=== PATIENT | female | born 1935 | race Caucasian/White ===

== ENCOUNTER → 2017-02-11 | Outpatient (CLI) | payer MEDICARE, BC ==
[2012-12-10 10:30] VITALS: BP 113/62
[~2017-02-11] MED LIST: CALCIUM + D 5001 TAB PO; CARDI-OMEGA1000 MG PO; CENTRUM SILVER1 TA1 PO; DOS PO; ESCITALOPRAM10 MG; FERROUS SULFATE65 MG PO; GOOD SENSE ASPI81 M1 PO; LOVASTATIN40 MG PO; MIRALAX17 GM/DOSE PO; VITAMIN C500 MG PO; ZOLPIDEM10 M1 PO; [UNRECOGNIZED DRUG - OTHER] PO
== END ==
LOC: LAB 10:07
DX: D64.9 Anemia, unspecified (principal); E78.2 Mixed hyperlipidemia; M81.0 Age-related osteoporosis without current pathological fracture; K63.5 Polyp of colon; E53.8 Deficiency of other specified B group vitamins

== ENCOUNTER 2017-11-23 14:10 | Emergency (ER) | payer MEDICARE, BC ==
[~2017-11-23] VITALS: Wt 59.8 kg
[2017-11-23 14:58] LABS: EOS # 0.1 (0.04-0.40); EOS % 0.8 % (1.0-5.0); HEMATOCRIT 38.4 % (37.0-47.0); HEMOGLOBIN 12.8 g/dL (12.5-16.0); LYMPH# 2.6 (1.50-4.00); MEAN CELL VOLUME 93 fl (78-100); MEAN CORPUSCULAR HEMOGLOBIN 31 pg (27-31); MEAN CORPUSCULAR HGB CONC 33 g/dL (33-37); MEAN PLATELET VOLUME 10.9 fl (7.4-10.4); MONO # 0.8 (0.20-0.80); NEU # 5.4 (1.40-6.50); PLATELET COUNT 263 K/mm3 (130-400); RED BLOOD COUNT 4.15 M/mm3 (4.10-5.30); RED CELL DISTRIBUTION WIDTH 13.2 % (11.5-14.5)
[2017-11-23 15:11] LABS: ALBUMIN 3.6 g/dL (3.5-5.0); BUN/CREATININE RATIO 22.2 (6.0-26.0); CALCIUM 8.9 mg/dL (8.4-10.2); POTASSIUM 3.6 mmol/L (3.6-5.0); TOTAL BILIRUBIN 0.6 mg/dL (0.2-1.3); TOTAL PROTEIN 6.6 g/dL (6.3-8.2); URINE APPEARANCE CLEAR; URINE BILIRUBIN NEGATIVE (NEGATIVE); URINE BLOOD NEGATIVE (NEGATIVE); URINE COLOR YELLOW; URINE GLUCOSE NEGATIVE (NEGATIVE); URINE KETONE NEGATIVE (NEGATIVE); URINE LEUKOCYTE ESTERASE NEGATIVE (NEGATIVE); URINE NITRATE NEGATIVE (NEGATIVE); URINE PROTEIN(semi-quant) NEGATIVE (NEGATIVE); URINE UROBILINOGEN NORMAL (NORMAL); URINE WBC 0-1 /hpf (0-3)
[2017-11-23 17:55] VITALS: BP 130/70
== END 2017-11-23 17:50 | disposition home or self-care (01) ==
LOC: ED 14:10
PROVIDERS: Family Medicine
DX: E86.9 Volume depletion, unspecified (principal); I95.1 Orthostatic hypotension; F03.90 Unspecified dementia, unspecified severity, without behavioral disturbance, psychotic disturbance, mood disturbance, and anxiety; Z79.899 Other long term (current) drug therapy
CPT/HCPCS: J7030

== ENCOUNTER → 2017-12-01 | Outpatient (CLI) | payer MEDICARE, BC ==
[2017-11-23 17:55] VITALS: BP 130/70
[2017-12-01 13:04] LABS: ALBUMIN 4.2 g/dL (3.5-5.0); BUN/CREATININE RATIO 19.8 (6.0-26.0); CALCIUM 10.1 mg/dL (8.4-10.2); POTASSIUM 3.9 mmol/L (3.6-5.0); TOTAL BILIRUBIN 0.8 mg/dL (0.2-1.3); TOTAL PROTEIN 7.5 g/dL (6.3-8.2)
[2017-12-01 13:07] LABS: EOS # 0.1 (0.04-0.40); EOS % 0.5 % (1.0-5.0); HEMOGLOBIN 13.6 g/dL (12.5-16.0); LYMPH# 2.9 (1.50-4.00); MEAN CELL VOLUME 93 fl (78-100); MEAN CORPUSCULAR HEMOGLOBIN 31 pg (27-31); MEAN CORPUSCULAR HGB CONC 33 g/dL (33-37); MEAN PLATELET VOLUME 11.2 fl (7.4-10.4); MONO # 0.6 (0.20-0.80); NEU # 5.7 (1.40-6.50); PLATELET COUNT 314 K/mm3 (130-400); RED BLOOD COUNT 4.42 M/mm3 (4.10-5.30); RED CELL DISTRIBUTION WIDTH 13.3 % (11.5-14.5); WHITE BLOOD COUNT 9.3 K/mm3 (4.8-10.8)
== END ==
LOC: LAB 12:22
PROVIDERS: Internal Medicine
DX: D64.9 Anemia, unspecified (principal); E78.5 Hyperlipidemia, unspecified; E53.8 Deficiency of other specified B group vitamins; M81.0 Age-related osteoporosis without current pathological fracture

== ENCOUNTER → 2017-12-04 | Outpatient (CLI) | payer MEDICARE, BC ==
[2017-11-23 17:55] VITALS: BP 130/70
[~2017-12-04] MED LIST changes: +CYANOCOBAL1000 MCG/1 IM; +MASON NATURAL1000 IU PO
== END ==
LOC: RAD 17:26
DX: I08.2 Rheumatic disorders of both aortic and tricuspid valves (principal)

== ENCOUNTER → 2017-12-05 | Outpatient (CLI) | payer MEDICARE, BC ==
[~2017-12-05] VITALS: Ht 157.5 cm; Wt 59.0 kg
[2017-12-05 09:00] VITALS: BP 101/57
[2017-12-05 09:05] VITALS: BP 101/58
[2017-12-05 09:10] VITALS: BP 85/51
[2017-12-05 09:49] VITALS: BP 101/57
--- NOTE | 2017-12-05 10:19 | NUR ---
1929- NOTIFIED LAB THAT MEDICATION WAS GIVEN AT 09 AND FOLLOW UP LAB AT 0955.
--- NOTE | 2017-12-05 10:26 | NUR ---
CALLED LAB TO NOTIFY 60 MINUTES SINCE MEDICATION WAS GIVEN
[2017-12-05 10:40] VITALS: BP 108/57
--- NOTE | 2017-12-05 10:40 | NUR ---
pT LEAVES AMBULATORY WOTH HER DAUGHTER AFTER PROCEDURE IS COMPLETED. STABLE CONDITION NO CHANGE IN BASELINE.
--- NOTE | 2017-12-05 10:44 | NUR ---
CALLL PLACED TO DAUGHTER TO NOTIFY PT PROCEDURE WAS COMPLETE AND WAS READY TO BE DISCHARGE TO HOME.
[2017-12-08 12:08] LABS: ADRENOCORTICOTROPIC HORMONE 7.1 pg/mL (())
== END ==
LOC: AMSURD 08:56
PROVIDERS: Internal Medicine
DX: R42 Dizziness and giddiness (principal); I95.1 Orthostatic hypotension
CPT/HCPCS: J0834

== ENCOUNTER → 2018-04-22 | Outpatient (CLI) | payer MEDICARE, BC ==
[2017-12-05 10:40] VITALS: BP 108/57
[2018-04-22 16:44] LABS: EOS % 0.5 % (1.0-5.0); HEMATOCRIT 42.5 % (37.0-47.0); HEMOGLOBIN 13.9 g/dL (12.5-16.0); LYMPH# 2.5 (1.50-4.00); MEAN CELL VOLUME 93 fl (78-100); MEAN CORPUSCULAR HEMOGLOBIN 31 pg (27-31); MEAN CORPUSCULAR HGB CONC 33 g/dL (33-37); MEAN PLATELET VOLUME 11.6 fl (7.4-10.4); MONO # 0.6 (0.20-0.80); NEU # 4.6 (1.40-6.50); PLATELET COUNT 287 K/mm3 (130-400); RED BLOOD COUNT 4.55 M/mm3 (4.10-5.30); RED CELL DISTRIBUTION WIDTH 12.6 % (11.5-14.5); WHITE BLOOD COUNT 7.8 K/mm3 (4.8-10.8)
[2018-04-22 18:47] LABS: ALBUMIN 3.9 g/dL (3.5-5.0); CALCIUM 9.5 mg/dL (8.4-10.2); TOTAL BILIRUBIN 0.9 mg/dL (0.2-1.3); TOTAL PROTEIN 6.8 g/dL (6.3-8.2)
[2018-04-22 23:58] LABS: PH-URINE 7.5 (5.0 - 8.0); URINE APPEARANCE CLOUDY; URINE BILIRUBIN NEGATIVE (NEGATIVE); URINE BLOOD TRACE (NEGATIVE); URINE COLOR YELLOW; URINE GLUCOSE NEGATIVE (NEGATIVE); URINE KETONE 1+ (NEGATIVE); URINE LEUKOCYTE ESTERASE NEGATIVE (NEGATIVE); URINE NITRATE NEGATIVE (NEGATIVE); URINE PROTEIN(semi-quant) NEGATIVE (NEGATIVE); URINE UROBILINOGEN NORMAL (NORMAL)
[2018-04-22 23:59] LABS: URINE MUCUS PRESENT (NOT PRESENT); URINE WBC 0-1 /hpf (0-3)
== END ==
LOC: LAB 15:34
PROVIDERS: Internal Medicine
DX: E78.5 Hyperlipidemia, unspecified (principal); M81.0 Age-related osteoporosis without current pathological fracture; D64.9 Anemia, unspecified; N30.00 Acute cystitis without hematuria

== ENCOUNTER → 2018-05-01 | Outpatient (CLI) | payer MEDICARE, BC ==
[2017-12-05 10:40] VITALS: BP 108/57
== END ==
LOC: RAD 16:17
DX: G31.9 Degenerative disease of nervous system, unspecified (principal); R90.82 White matter disease, unspecified; R41.82 Altered mental status, unspecified

== ENCOUNTER → 2018-12-21 | Outpatient (CLI) | payer MEDICARE, BC ==
[2017-12-05 10:40] VITALS: BP 108/57
[2018-12-21 10:58] LABS: EOS # 0.1 (0.04-0.40); EOS % 2.2 % (1.0-5.0); HEMATOCRIT 42.8 % (37.0-47.0); HEMOGLOBIN 13.9 g/dL (12.5-16.0); LYMPH# 1.9 (1.50-4.00); MEAN CELL VOLUME 92 fl (78-100); MEAN CORPUSCULAR HEMOGLOBIN 30 pg (27-31); MEAN CORPUSCULAR HGB CONC 33 g/dL (33-37); MEAN PLATELET VOLUME 10.4 fl (7.4-10.4); MONO # 0.4 (0.20-0.80); PLATELET COUNT 271 K/mm3 (130-400); RED BLOOD COUNT 4.65 M/mm3 (4.10-5.30); RED CELL DISTRIBUTION WIDTH 12.8 % (11.5-14.5); WHITE BLOOD COUNT 6.5 K/mm3 (4.8-10.8)
[2018-12-21 10:59] LABS: ALBUMIN 3.7 g/dL (3.4-4.8)
[2018-12-21 11:00] LABS: CALCIUM 9.3 mg/dL (8.3-10.5)
[2018-12-21 11:02] LABS: TOTAL PROTEIN 6.7 g/dL (6.2-8.1)
[2018-12-21 11:03] LABS: TOTAL BILIRUBIN 0.5 mg/dL (0.2-1.2)
== END ==
LOC: LAB 10:25
PROVIDERS: Internal Medicine
DX: E78.5 Hyperlipidemia, unspecified (principal); M81.0 Age-related osteoporosis without current pathological fracture; D51.9 Vitamin B12 deficiency anemia, unspecified; K63.5 Polyp of colon

== ENCOUNTER → 2019-03-09 | Outpatient (CLI) | payer MEDICARE, BC ==
[2017-12-05 10:40] VITALS: BP 108/57
== END ==
LOC: RAD 12:44 → MAMMO 13:00 → RAD 13:00
DX: Z12.31 Encounter for screening mammogram for malignant neoplasm of breast (principal); Z13.820 Encounter for screening for osteoporosis; M81.0 Age-related osteoporosis without current pathological fracture; M85.88 Other specified disorders of bone density and structure, other site

== ENCOUNTER → 2020-08-14 | Outpatient (CLI) | payer MEDICARE, BC ==
[2017-12-05 10:40] VITALS: BP 108/57
[2020-08-14 16:25] LABS: ALBUMIN 3.8 g/dL (3.4-4.8); POTASSIUM 4.4 mmol/L (3.5-5.1)
[2020-08-14 16:26] LABS: CALCIUM 9.3 mg/dL (8.3-10.5)
[2020-08-14 16:28] LABS: TOTAL PROTEIN 6.8 g/dL (6.2-8.1)
[2020-08-14 16:30] LABS: TOTAL BILIRUBIN 0.3 mg/dL (0.2-1.2)
[2020-08-14 16:51] LABS: EOS % 2.2 % (1.0-5.0); HEMATOCRIT 42.8 % (37.0-47.0); HEMOGLOBIN 13.7 g/dL (12.5-16.0); MEAN CELL VOLUME 93 fl (78-100); MEAN CORPUSCULAR HEMOGLOBIN 30 pg (27-31); MEAN CORPUSCULAR HGB CONC 32 g/dL (33-37); MEAN PLATELET VOLUME 10.3 fl (7.4-10.4); NEU # 5.9 (1.40-6.50); PLATELET COUNT 347 K/mm3 (130-400); RED CELL DISTRIBUTION WIDTH 12.5 % (11.5-14.5); WHITE BLOOD COUNT 9.3 K/mm3 (4.8-10.8)
[2020-08-14 16:52] LABS: EOS # 0.2 (0.04-0.40); LYMPH# 2.3 (1.50-4.00); MONO # 0.7 (0.20-0.80)
== END ==
LOC: LAB 15:55
PROVIDERS: Internal Medicine
DX: D64.9 Anemia, unspecified (principal); K90.9 Intestinal malabsorption, unspecified; E78.2 Mixed hyperlipidemia

== ENCOUNTER → 2021-02-26 | Outpatient (CLI) | payer MEDICARE, BC ==
[2021-02-26 16:58] LABS: BASO # 0.05 (0.02-0.10); EOS # 0.15 (0.04-0.40); EOS % 1.8 % (1.0-5.0); HEMATOCRIT 42.1 % (37.0-47.0); HEMOGLOBIN 13.7 g/dL (12.5-16.0); LYMPH# 2.17 (1.50-4.00); MEAN CELL VOLUME 94 fl (78-100); MEAN CORPUSCULAR HEMOGLOBIN 31 pg (27-31); MEAN CORPUSCULAR HGB CONC 33 g/dL (33-37); MEAN PLATELET VOLUME 10.5 fl (7.4-10.4); MONO # 0.84 (0.20-0.80); NEU # 5.21 (1.40-6.50); PLATELET COUNT 317 K/mm3 (130-400); RED BLOOD COUNT 4.49 M/mm3 (4.10-5.30); RED CELL DISTRIBUTION WIDTH 12.6 % (11.5-14.5); WHITE BLOOD COUNT 8.4 K/mm3 (4.8-10.8)
[2021-02-26 17:21] LABS: ALBUMIN 3.9 g/dL (3.4-4.8); POTASSIUM 4.1 mmol/L (3.5-5.1)
[2021-02-26 17:22] LABS: CALCIUM 10.4 mg/dL (8.3-10.5)
[2021-02-26 17:24] LABS: TOTAL PROTEIN 6.9 g/dL (6.2-8.1)
[2021-02-26 17:25] LABS: TOTAL BILIRUBIN 0.3 mg/dL (0.2-1.2)
== END ==
LOC: LAB 16:22
PROVIDERS: Internal Medicine
DX: K90.9 Intestinal malabsorption, unspecified (principal); D64.9 Anemia, unspecified; E78.2 Mixed hyperlipidemia

== ENCOUNTER → 2021-04-16 | Outpatient (CLI) | payer MEDICARE, BC | LOC: MAMMO 04-03 14:30 | DX: Z13.820 Encounter for screening for osteoporosis (principal); M81.0 Age-related osteoporosis without current pathological fracture ==

== ENCOUNTER → 2023-03-18 | Outpatient (CLI) | payer MEDICARE, BC ==
[2023-03-18 16:39] LABS: BASO # 0.04 K/mm3 (0.02-0.10); EOS # 0.17 K/mm3 (0.04-0.40); EOS % 1.9 % (1.0-5.0); HEMOGLOBIN 13.6 g/dL (12.5-16.0); LYMPH# 2.47 K/mm3 (1.50-4.00); MEAN CELL VOLUME 93 fl (78-100); MEAN CORPUSCULAR HEMOGLOBIN 30 pg (27-31); MEAN CORPUSCULAR HGB CONC 32 g/dL (33-37); MEAN PLATELET VOLUME 10.9 fl (7.4-10.4); MONO # 0.65 K/mm3 (0.20-0.80); NEU # 5.67 K/mm3 (1.40-6.50); PLATELET COUNT 283 K/mm3 (130-400); RED BLOOD COUNT 4.52 M/mm3 (4.10-5.30); RED CELL DISTRIBUTION WIDTH 12.6 % (11.5-14.5)
[2023-03-18 16:46] LABS: POTASSIUM 4.3 mmol/L (3.5-5.1)
[2023-03-18 16:47] LABS: ALBUMIN 3.9 g/dL (3.4-4.8)
[2023-03-18 16:48] LABS: CALCIUM 9.9 mg/dL (8.3-10.5)
[2023-03-18 16:49] LABS: TOTAL PROTEIN 7.1 g/dL (6.2-8.1)
[2023-03-18 16:51] LABS: TOTAL BILIRUBIN 0.3 mg/dL (0.2-1.2)
[2023-03-18 16:56] LABS: MAGNESIUM 2.22 mg/dL (1.60-2.60)
== END ==
LOC: LAB 16:16
PROVIDERS: Internal Medicine
DX: Z23 Encounter for immunization (principal); M81.0 Age-related osteoporosis without current pathological fracture; D64.9 Anemia, unspecified; M54.12 Radiculopathy, cervical region; E53.8 Deficiency of other specified B group vitamins; K90.9 Intestinal malabsorption, unspecified; E78.2 Mixed hyperlipidemia; E55.9 Vitamin D deficiency, unspecified